=== PATIENT | female | born 1995 | race Caucasian/White ===

== ENCOUNTER 2017-06-09 00:56 | Emergency (ER) | payer OTHER ==
[2017-06-09 01:20] VITALS: O2SAT 94
--- NOTE | 2017-06-09 01:20 | ED.PDOC ---
History of Present Illness - General Chief Complaint: General Stated Complaint: shortness of breath, hx asthma Time Seen by Provider: 06/09/17 01:14 Source: patient Exam Limitations: no limitations - History of Present Illness Initial Comments: Papito Alejo 22 y/o female stated that had flu like symptoms for the last one week cough /congestion and went to see her Md this morning because of persistent coughing and pleuritic chest pains cxr done was prescribed antibiotics and steroid which she started taking it today.Has history of asthma and had 2 nebulizer treatment at home.Also went on a long drive to [place] last week of May. Timing/Duration: other - one week Improving Factors: nothing Worsening Factors: nothing Associated Symptoms: other - pleuritic chest pains Allergies/Adverse Reactions: Allergies Penicillins Allergy (Severe, Verified 09/27/14 18:18) Shortness of Breath Cefdinir [From Omnicef] Allergy (Verified 09/27/14 18:18) Sodium Benzoate [From Omnicef] Allergy (Verified 09/27/14 18:18) Home Medications: Ambulatory Orders Albuterol Sulfate 1 neb INH PRN PRN 11/20/12 Amphetamine-Dextroamphetamine 1 tab PO PRN PRN 09/28/14 Budesonide-Formoterol Fumarate [Symbicort 80-4.5 Mcg/Act] 1 aer IN BID 09/28/14 Montelukast [Singulair] 10 mg PO DAILY@0700 09/28/14 Acetaminophen W/ Codeine [Tylenol W/ CODEINE #3] 1 ea PO Q6H #20 10/15/14 Azithromycin [Zithromax Z-Magdiel] 1 ea PO DAILY #1 pack 10/15/14 Lidocaine HCl (Mouth-Throat) [Lidocaine HCl Viscous] 2 % MT Q4H #200 arnulfo Methylprednisolone [Medrol Dose Magdiel] 4 mg PO QAM #1 tab 10/15/14 Naproxen [Naprosyn] 500 mg PO BID #30 tab 10/15/14 Norgestimate-Ethinyl Estradiol [Trinessa 0.18/0.215/0.25 mg-35 Mcg] 1 tab PO DAILY 10/15/14 Tramadol HCl [Ultram] 50 mg PO Q6H #20 tab 10/15/14 Review of Systems - Review of Systems Constitutional: States: no symptoms reported EENTM: States: nose congestion Respiratory: States: see HPI Cardiology: States: no symptoms reported Gastrointestinal/Abdominal: States: no symptoms reported Genitourinary: States: no symptoms reported Musculoskeletal: States: no symptoms reported Skin: States: no symptoms reported All other Systems: Reviewed and Negative, No Change from Baseline Past Medical History (General) - Patient Medical History Hx Seizures: No Hx Stroke: No Hx Dementia: No Hx Asthma: Yes Hx of COPD: No Hx Cardiac Disorders: No Hx Congestive Heart Failure: No Hx Pacemaker: No Hx Hypertension: No Hx Thyroid Disease: No Hx Diabetes: No Hx Gastroesophageal Reflux: No Hx Renal Disease: No Hx Cancer: No Hx of HIV: No Hx Hepatitis C: No Hx MRSA: No Surgical History: tonsillectomy - Vaccination History Hx Tetanus, Diphtheria Vaccination: Yes Hx Influenza Vaccination: No Hx Pneumococcal Vaccination: No - Social History Hx Tobacco Use: No Hx Chewing Tobacco Use: No Hx Alcohol Use: No Hx Substance Use: No Hx Substance Use Treatment: No Hx Depression: No Hx Physical Abuse: No Hx Emotional Abuse: No Hx Suspected Abuse: No - Female History Hx Last Menstrual Period: 05/24/17 Patient : No Family Medical History - Family History Mother Family History: No Known Hx Family Asthma: Yes Hx Family Hypertension: Yes - multiple family members Physical Exam - Physical Exam General Appearance: Alert, Comfortable, No apparent distress Eye Exam: bilateral normal Ears, Nose, Throat: hearing grossly normal, normal ENT inspection, normal pharynx Neck: non-tender, supple Respiratory: chest non-tender, normal breath sounds, no respiratory distress Cardiovascular/Chest: normal peripheral pulses, no murmur Peripheral Pulses: radial,right: 2+, radial,left: 2+ Gastrointestinal/Abdominal: normal bowel sounds, non tender, soft, no organomegaly Back Exam: no CVA tenderness, no vertebral tenderness Extremity: non-tender, no pedal edema, no calf tenderness Neurologic: alert, oriented x 3 Skin Exam: normal color, warm/dry Progress - Progress Progress: 06/09/17 02:44 Last Vital Signs Temp 99.0 F 06/09/17 01:15 Pulse 85 06/09/17 01:15 Resp 18 06/09/17 01:28 BP 109/71 06/09/17 01:15 Pulse Ox 94 L 06/09/17 01:15 - Results/Orders Results/Orders: Laboratory Tests 06/09/17 06/09/17 06/09/17 01:37 01:37 01:37 WBC 7.6 RBC 4.81 Hgb 14.1 Hct 42.0 MCV 87.2 MCH 29.3 MCHC 33.6 RDW 12.5 Plt Count 255 MPV 7.2 L Absolute Neuts (auto) 5.70 Absolute Lymphs (auto) 1.40 Absolute Monos (auto) 0.50 Absolute Eos (auto) 0.00 Absolute Basos (auto) 0.10 Neutrophils % 74.5 Lymphocytes % 18.0 L Monocytes % 6.6 Eosinophils % 0.1 L Basophils % 0.8 D-Dimer, Quantitative Sodium 137 Potassium 4.2 Chloride 105 Carbon Dioxide 23 Anion Gap 13.2 BUN 18 Creatinine 0.62 BUN/Creatinine Ratio 29.0 H Random Glucose 194 H Serum Osmolality 281.0 Calcium 10.1 Serum HCG, Qual Negative 06/09/17 01:38 WBC RBC Hgb Hct MCV MCH MCHC RDW Plt Count MPV Absolute Neuts (auto) Absolute Lymphs (auto) Absolute Monos (auto) Absolute Eos (auto) Absolute Basos (auto) Neutrophils % Lymphocytes % Monocytes % Eosinophils % Basophils % D-Dimer, Quantitative < 200 Sodium Potassium Chloride Carbon Dioxide Anion Gap BUN Creatinine BUN/Creatinine Ratio Random Glucose Serum Osmolality Calcium Serum HCG, Qual Flu Test A/B-negative - EKG/XRAY/CT XRAY: chest - no acute abnormalities Departure - Departure Clinical Impression: Viral upper respiratory tract infection, Pleuritic chest pain Time of Disposition: 03:04 Disposition: Discharge to Home or Self Care Condition: Fair Departure Forms: ED Discharge - Pt. Copy, Patient Portal Self Enrollment Instructions: DI for Viral Upper Respiratory Infection -- Adult Referrals: Brandon Keller MD [Primary Care Provider] - 1-2 Weeks Home Medications: Ambulatory Orders Albuterol Sulfate 1 neb INH PRN PRN 11/20/12 Amphetamine-Dextroamphetamine 1 tab PO PRN PRN 09/28/14 Budesonide-Formoterol Fumarate [Symbicort 80-4.5 Mcg/Act] 1 aer IN BID 09/28/14 Montelukast [Singulair] 10 mg PO DAILY@0700 09/28/14 Acetaminophen W/ Codeine [Tylenol W/ CODEINE #3] 1 ea PO Q6H #20 10/15/14 Azithromycin [Zithromax Z-Magdiel] 1 ea PO DAILY #1 pack 10/15/14 Lidocaine HCl (Mouth-Throat) [Lidocaine HCl Viscous] 2 % MT Q4H #200 arnulfo Methylprednisolone [Medrol Dose Magdiel] 4 mg PO QAM #1 tab 10/15/14 Naproxen [Naprosyn] 500 mg PO BID #30 tab 10/15/14 Norgestimate-Ethinyl Estradiol [Trinessa 0.18/0.215/0.25 mg-35 Mcg] 1 tab PO DAILY 10/15/14 Tramadol HCl [Ultram] 50 mg PO Q6H #20 tab 10/15/14 Additional Instructions: May take over the counter Mucinex Dm one tablet am/pm;Benadryl 1-2 caps am/pm ; Aleve one tablet am/pm for pain Continue with all home medications
--- NOTE | 2017-06-09 02:53 | RAD ---
EXAM DESCRIPTION: Chest,1 View CLINICAL HISTORY: cough COMPARISON: 08/19/2012 FINDINGS: Single frontal view of the chest. The cardiomediastinal silhouette has normal size and contour. No consolidation, pneumothorax, or pleural effusion. No displaced rib fractures identified. Upper abdominal soft tissues are unremarkable. Bilateral nipple shadows identified. IMPRESSION: 1. No acute pulmonary process. Electronically signed by: Keny Armijo 06/09/2017 2:53 AM NURSE EPIDEMIOLOGIST
[2017-06-09 03:22] VITALS: BP 107/54; TEMP 98.9
[2017-06-09] MEDS ORDERED: HYDROcodone 10MG/APAP 325MG 1 EA TAB PO ONE (03:31)
== END 2017-06-09 03:23 | disposition home or self-care (01) ==
LOC: ER 00:56
DX: J06.9 Acute upper respiratory infection, unspecified (principal); R07.81 Pleurodynia; J45.909 Unspecified asthma, uncomplicated; Z79.899 Other long term (current) drug therapy; Z88.0 Allergy status to penicillin

== ENCOUNTER → 2017-09-07 | Outpatient (CLI) | payer OTHER | LOC: GMAM 15:03 | PROVIDERS: ATTEND Family Medicine | DX: J30.1 Allergic rhinitis due to pollen (principal) ==

== ENCOUNTER 2018-09-02 19:09 | Emergency (ER) | payer OTHER ==
[2018-09-02] MEDS ORDERED: AZITHROMYCIN 250 MG TAB PO ONE (19:21)
--- NOTE | 2018-09-02 19:24 | ED.PDOC ---
History of Present Illness - General Chief Complaint: ENT Problem Time Seen by Provider: 09/02/18 19:21 Source: patient Exam Limitations: no limitations - History of Present Illness Initial Comments: patient underwent a history of right-sided ear pain. Patient states at first it felt like perhaps there wishes something in the ear it itched it was bothersome for her. I try to clean it out with hydrogen peroxide but now it's actual pain. Patient is worried something is actually in the ear itself. No fever no chills but a lot of nasal congestion and sinus pressure with allergies of the past week. She otherwise fairly healthy although she does have asthma. Patient is allergic to penicillin and cephalosporins. Patient has no fever no chills no nausea or vomiting. Timing/Duration: gradual Severity: moderate EENT Location: ear (R) Prearrival Treatment: no prearrival treatment Improving Factors: nothing Worsening Factors: nothing Allergies/Adverse Reactions: Allergies Penicillins Allergy (Severe, Verified 09/27/14 18:18) Shortness of Breath Cefdinir [From Omnicef] Allergy (Verified 09/27/14 18:18) Sodium Benzoate [From Omnicef] Allergy (Verified 09/27/14 18:18) Home Medications: Ambulatory Orders Albuterol Sulfate 1 neb INH PRN PRN 11/20/12 Azithromycin Tab [Zithromax] 250 mg PO DAILY 4 Days #4 tab 09/02/18 Review of Systems - Review of Systems Constitutional: States: no symptoms reported. Denies: chills, fever EENTM: States: ear pain, nose congestion Respiratory: States: no symptoms reported. Denies: cough, short of breath, stridor, wheezing Cardiology: States: no symptoms reported. Denies: chest pain, edema, palpitatio ns Gastrointestinal/Abdominal: States: no symptoms reported Past Medical History (General) - Patient Medical History Hx Seizures: No Hx Stroke: No Hx Dementia: No Hx Asthma: Yes Hx of COPD: No Hx Cardiac Disorders: No Hx Congestive Heart Failure: No Hx Pacemaker: No Hx Hypertension: No Hx Thyroid Disease: No Hx Diabetes: No Hx Gastroesophageal Reflux: No Hx Renal Disease: No Hx Cancer: No Hx of HIV: No Hx Hepatitis C: No Hx MRSA: No - Vaccination History Hx Tetanus, Diphtheria Vaccination: Yes Hx Influenza Vaccination: No Hx Pneumococcal Vaccination: No - Social History Hx Tobacco Use: No Hx Chewing Tobacco Use: No Hx Alcohol Use: No Hx Substance Use: No Hx Substance Use Treatment: No Hx Depression: No Hx Physical Abuse: No Hx Emotional Abuse: No Hx Suspected Abuse: No - Female History Hx Last Menstrual Period: 05/24/17 Patient : No Expected Date of Delivery:: 02/20/13 Family Medical History - Family History Mother Family History: No Known Hx Family Asthma: Yes Hx Family Hypertension: Yes - multiple family members Physical Exam - Physical Exam General Appearance: Alert, Comfortable Eye Exam: bilateral normal Ear Exam: right ear: TM bulging - serous fluid and dull, no wax, irritation or FB in canal , left ear: TM normal, bilateral ear: auricle normal, canal normal Departure - Departure Clinical Impression: Otitis media Qualifiers: Otitis media type: serous Chronicity: acute Laterality: right Recurrence: non- recurrent Qualified Code(s): H65.01 - Acute serous otitis media, right ear Disposition: Discharge to Home or Self Care Condition: Fair Departure Forms: ED Discharge - Pt. Copy, Patient Portal Self Enrollment Instructions: DI for Ear Pain-Adult Referrals: Brandon Keller MD [Primary Care Provider] - 1-2 Weeks Prescriptions: Azithromycin Tab [Zithromax] 250 mg PO DAILY 4 Days #4 tab Home Medications: Ambulatory Orders Albuterol Sulfate 1 neb INH PRN PRN 11/20/12 Azithromycin Tab [Zithromax] 250 mg PO DAILY 4 Days #4 tab 09/02/18 Additional Instructions: follow up with PCP if not better in 1 week. Return to ER for severe increase in pain, worsening of symptoms
[2018-09-02 19:33] VITALS: TEMP 98.8
== END 2018-09-02 19:29 | disposition home or self-care (01) ==
LOC: ER 19:09
DX: H65.01 Acute serous otitis media, right ear (principal); J45.909 Unspecified asthma, uncomplicated; Z88.1 Allergy status to other antibiotic agents; Z88.0 Allergy status to penicillin

== ENCOUNTER → 2018-10-03 | Outpatient (CLI) | payer OTHER | LOC: GMAM 15:08 | PROVIDERS: ATTEND Family Medicine | DX: R53.83 Other fatigue (principal); E55.9 Vitamin D deficiency, unspecified ==

== ENCOUNTER → 2018-10-06 | Outpatient (CLI) | payer OTHER ==
--- NOTE | 2018-10-06 16:59 | MRI ---
EXAM DESCRIPTION: MRI left foot CLINICAL HISTORY: Anterior foot pain. Pain in the great toe COMPARISON: None. TECHNIQUE: Multiplanar, multisequence MR images of the left foot FINDINGS: Intermediate T1 and bright T2/PD signal between the second and third metatarsal heads. Minimal fluid signal, intermetatarsal bursitis renal abnormality to diagnose Matias's neuroma. Signal beneath the second and fifth metatarsal phalangeal joint in the subcutaneous fat compatible with a small adventitial bursa with mild edema. Normal marrow signal in the metatarsals, phalanges and visualized tarsal bones. No advanced arthrosis or focal osteochondral lesion Midfoot interosseous ligaments are intact Intratendinous and peritendinous edema over a short segment extensor hallucis tendon over the midfoot at the level of the tarsometatarsal joint, sagittal STIR image 19 and 20, axial PD images 27 through 35. No tendon tear. The other extensor tendons are normal Normal flexor tendons. Intrinsic muscles of the foot are normal IMPRESSION: Extensor hallux tendinosis with a short segment of intratendinous and peritendinous edema along the dorsal midfoot Intermetatarsal bursal fluid collection between the second third metatarsals. Small adventitial bursa beneath the second and fifth metatarsal heads No acute bony abnormality Electronically signed by: Brandon Monroy MD 10/06/2018 4:57 PM CDT
== END ==
LOC: MRI 07:00
PROVIDERS: ATTEND Family Medicine
DX: M65.272 Calcific tendinitis, left ankle and foot (principal)